=== PATIENT | male | born 1960 | race Caucasian/White ===

== ENCOUNTER 2019-10-11 12:40 | Emergency (ER) | payer OTHER, SELFPAY ==
--- NOTE | ~2019-10-11 | CT_ITS ---
EXAMINATION: CT brain wo con DATE: 10/11/2019 14:02 INDICATION: Status post fall. Neck mass. TECHNIQUE: Computed tomography (CT) of the head was performed without intravenous contrast. The dose- length product was 605.33 mGy-cm. Automated exposure control and iterative reconstruction technique w ere employed. COMPARISON: None FINDINGS: Mild generalized atrophy. There are scattered mild periventricular and subcortical white ma tter changes, most likely related to small vessel ischemic disease (microangiopathy). No acute intrac ranial hemorrhage, infarction, mass or mass effect. Paranasal sinuses and mastoids are pneumatized. N o depressed skull fractures. There is intracranial atherosclerosis. IMPRESSION: 1. No acute intracranial abnormality. 2: Chronic age-related findings. Reviewed, dictated and finalized at location A.
--- NOTE | ~2019-10-11 | XR_ITS ---
XR chest 2V 10/11/2019 14:10 Indication: Weakness Procedure: 2 view chest Comparison: No prior studies for comparison. Findings: Heart size normal. No focal air space disease, pulmonary edema, pleural effusion or suspect ed pneumothorax. The lungs are hyperinflated which is consistent with, but not diagnostic of chronic obstructive pulmonary disease. There is atherosclerosis and ectasia of the aorta. There are prominent bilateral nipple shadows. No acute osseous abnormality. There is a mild mid thoracic wedge compressi on deformity, likely chronic. Impression: 1: No acute cardiopulmonary disease. Reviewed, dictated and finalized at location A. Impression: 1: No acute cardiopulmonary disease.
--- NOTE | ~2019-10-11 | CT_ITS ---
EXAMINATION: CT soft tissue neck w con DATE: 10/11/2019 14:02 INDICATION: Left neck mass. TECHNIQUE: Computed tomography (CT) of the neck was performed with 75 mL Omnipaque-350 intravenous co ntrast. Automated exposure control and iterative reconstruction technique were employed. The dose-waleska gth product was 430.44 mGy-cm. COMPARISON: None FINDINGS: There is mild emphysema. 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 There is involvement of the left sternocleidomastoid muscle. 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 There is asymmetric enlargement of left false vocal cord. T here is plaque in the proximal internal carotid arteries with less than 50% stenosis relative to norm al distal artery lumen diameters. There is mild mucosal thickening in the ethmoid sinuses. The mastoi d air cells are normal. There is severe cervical spondylosis. IMPRESSION: 1. Left internal jugular chain lymphadenopathy, consistent with metastatic disease. Ultrasound-guided core needle biopsy is recommended. 2. Asymmetric enlargement of left false vocal cord suspicious for primary squamous cell carcinoma. Reviewed, dictated and finalized at location A. IMPRESSION: 1. Left internal jugular chain lymphadenopathy, consistent with metastatic dise ase. Ultrasound-guided core needle biopsy is recommended. 2. Asymmetric enlargement of left false vocal cord suspicious for primary squam ous cell carcinoma.
--- NOTE | ~2019-10-11 | CT_ITS ---
EXAMINATION: CT thoracic lumbar wo con DATE: 10/11/2019 14:03 INDICATION: Back pain. Fall. TECHNIQUE: Computed tomography (CT) of the thoracic and lumbar spine was performed without intravenou s contrast. Automated exposure control and iterative reconstruction technique were employed. The dose -length product was 439.02 mGy-cm. COMPARISON: None FINDINGS: THORACIC SPINE CT: There is an 11 mm nodule in right lung lower lobe. Bone alignment is normal. There is chronic anterior wedging of T6, T7, and T9-T12 vertebral bodies. There is a compression fracture of T8 with 2/5 loss of height. Intervertebral disc heights are normal in thoracic spine. There is sev ere cervical spondylosis. There is multilevel facet joint osteoarthritis, severe bilaterally at C7-T1 and T1-T2. There is mild bilateral neural foraminal stenosis at the C7-T1 and T1-T2. There is mild c entral canal stenosis at C6-C7 and T11-T12. There are healing fractures of right 10th and 11th ribs. There is a healed fracture of right 12th rib. LUMBAR SPINE CT: There is 10 degrees levoscoliosis of lumbar spine. Vertebral body heights are normal . There is mildly decreased disc height from L2-L3 through L4-L5 and severely decreased disc height a t L5 5-S1. The following disc levels are specifically discussed: L1-L2: The disc is bulging. There is mild bilateral facet joint osteoarthritis. There is mild bilater al neural foraminal stenosis. There is mild central canal stenosis. L2-L3: The disc is bulging. There is mild bilateral facet joint osteoarthritis. There is mild bilater al neural foraminal stenosis. There is mild central canal stenosis. L3-L4: The disc is bulging. There is mild bilateral facet joint osteoarthritis. There is moderate rig ht and mild left neural foraminal stenosis. There is mild central canal stenosis. L4-L5: The disc is bulging. There is moderate bilateral facet joint osteoarthritis. There is moderate bilateral neural foraminal stenosis. There is mild central canal stenosis. L5-S1: The disc is bulging. There is severe bilateral facet joint osteoarthritis. There is mild right and moderate left neural foraminal stenosis. There is mild central canal stenosis. IMPRESSION: 1. T8 compression fracture, likely acute or subacute. 2. Severe cervical spondylosis, mild thoracic spondylosis, and severe lumbar spondylosis. 3. 11 mm pulmonary nodule suspicious for primary bronchogenic carcinoma or metastatic disease. Chest CT is recommended. Reviewed, dictated and finalized at location A. IMPRESSION: 1. T8 compression fracture, likely acute or subacute. 2. Severe cervical spondylosis, mild thoracic spondylosis, and severe lumbar sp ondylosis. 3. 11 mm pulmonary nodule suspicious for primary bronchogenic carcinoma or meta static disease. Chest CT is recommended.
--- NOTE | 2019-10-11 12:33 | ED.GENADULT ---
HPI - General Adult General Chief complaint: Fall <Allie Lopez MD - Last Filed: 10/11/19 19:09> Stated complaint: FALL <Allie Lopez MD - Last Filed: 10/11/19 19:09> Source: patient and EMS <Allie Lopez MD - Last Filed: 10/11/19 19:09> Mode of arrival: EMS <Allie Lopez MD - Last Filed: 10/11/19 19:09> Limitations: no limitations <Allie Lopez MD - Last Filed: 10/11/19 19:09> History of Present Illness HPI narrative: Patient is a 59-year-old male who presents for evaluation of weakness. Patient reportedly was walking up the stairs in his home, when he misstepped and fell onto the stairs. Patient states that he has had increasing weakness over the past few months, and intermittent bleeding and pain from a wound on his left neck. He states his primary care physician has evaluated this, he has been on numerous doses of antibiotics without any resolution in it. Patient has no known history of cancer. He has never been seen at this hospital before. Patient reports chronic pain all over his body. He denies any acute chest pain, shortness of breath, cough or fever. No acute hip pain. He reports chronic back pain. He denies extremity pain. Patient lives alone, cares for himself, states he does not often visit the hospital. Patient denies any numbness or history of stroke. After speaking with patient's primary care provider, the patient had been seen in the office 1 time, then refused to follow-up or have laboratory work or imaging studies obtained. Her nurse percussion or the sees the patient associated with Dr. Chaney office was concern for cancerous process such as leukoplakia, patient had been referred to ENT. <Allie Lopez MD - Last Filed: 10/11/19 19:09> Related Data Home medications: Home Medications Medication Instructions Recorded Confirmed atenolol 100 mg PO DAILY 10/11/19 <Allie Lopez MD - Last Filed: 10/11/19 19:09> Allergies/adverse reactions: Allergies Allergy/AdvReac Type Severity Reaction Status Date / Time amoxicillin Allergy Other Verified 10/11/19 12:52 <Allie Lopez MD - Last Filed: 10/11/19 19:09> Review of Systems Review of Systems: Narrative: CONSTITUTIONAL: Denies fever, chills, or sweats. EYES: Denies visual changes, redness, or discharge. ENT: Denies rhinorrhea, congestion, sore throat, or otalgia. CARDIOVASCULAR: Denies chest pain, palpitations, or edema. RESPIRATORY: Denies cough or dyspnea. GASTROINTESTINAL: Denies abdominal pain, nausea, vomiting, or diarrhea. GENITOURINARY: Denies dysuria or hematuria. SKIN: Denies rash or itching. Reports wound to left neck. MUSCULOSKELETAL: Reports chronic back pain and muscle aches NEUROLOGIC: Denies headache, numbness, reports weakness <Allie Lopez MD - Last Filed: 10/11/19 19:09> [facility] Past Medical History Medical History: Medical History (Updated 10/12/19 @ 00:00 by [facility]) Hypertension <Allie Lopez MD - Last Filed: 10/11/19 19:09> Surgical History Surgical History: Surgical History (Updated 10/11/19 @ 12:53 by Allie Lopez MD) H/O hand surgery H/O hernia repair <Allie Lopez MD - Last Filed: 10/11/19 19:09> Social History Social History: Social History Smoking status: Light tobacco smoker Alcohol intake: current <Allie Lopez MD - Last Filed: 10/11/19 19:09> Exam Narrative: Exam Narrative: GENERAL: Awake, alert, conversant, cachectic HEAD: Normocephalic, atraumatic. EYES: PERRLA and EOMI. ENT: Nares clear, no rhinorrhea or epistaxis. Mucous membranes dry NECK: Supple. Chronic appearing mass on left anterior neck, no fluctuance, irregular shape, non-mobile, no areas of necrosis, no drainage, mild excoriation CHEST: No respiratory distress, breathing even and non labored HEART: Regular rate, sinus rhythm ABDOMEN: Scaphoi
--- NOTE | 2019-10-11 12:45 | ECG_ITS ---
Measurements Intervals [place] Rate: 78 P: 84 OR: 148 QRS: 67 QRSD: 94 T: 72 QT: 408 QTc: 465 Interpretive Statements SINUS RHYTHM CONSIDER INFERIOR INFARCT, AGE INDETERMINATE ST-T WAVE ABNORMALITY IN ANTERIOR LEADS- CONSIDER ISCHEMIA BASELINE ARTIFACT- V4-V5 ABNORMAL ECG Electronically Signed On 10-11-2019 13:29:50 CDT by Cosme Mcqueen D.O.
[2019-10-11 12:46] VITALS: BP 130/93; PULSE 80; RESP 16; TEMP 36.3; O2SAT 100
[2019-10-11] MEDS: SODIUM CHLORIDE 0.9% IV 1,000 ML 999 ML IV CONT (12:59)
[2019-10-11 13:06] LABS: Glucose Point of Care 61 (65-105)
[2019-10-11 13:21] LABS: Basophils Percent Auto 0.4 % (0.2-1.2); Hematocrit 23.1 % (42.0-52.0); Hemoglobin 8.1 g/dL (14.0-18.0); Immature Granulocyte Absolute 0.04 K/mm3 (0.00-0.031); Immature Granulocyte Percent A 0.8 % (0-0.5); Lymphocytes Absolute Auto 0.67 K/mm3 (0.9-3.2); Lymphocytes Percent Auto 13.3 % (18.3-44.2); Mean Corpuscular HGB Conc 35.1 g/dl (32-36); Mean Corpuscular Hemoglobin 34.2 pg (26-34); Mean Corpuscular Volume 97.5 fl (80-100); Mean Platelet Volume 11.1 fl (7.4-10.4); Monocytes Absolute Auto 0.3 K/mm3 (0.1-0.6); Monocytes Percent Auto 5.1 % (2.6-8.5); Neutrophils Absolute Auto 4.1 K/mm3 (1.3-6.7); Neutrophils Percent Auto 80.4 % (45.5-73.1); Nucleated Red Blood Cells Perc 0.6 % (0.0-0.2); Platelet Count Result 172 k/mm3 (150-375); Red Blood Count 2.37 M/mm3 (4.6-6.20); Red Cell Distribution Width 13.4 % (11.5-14.5); White Blood Count 5.1 K/mm3 (4.5-10.0)
[2019-10-11 13:28] LABS: Prothrombin Time 12.4 Seconds (11.1-14.7)
[2019-10-11 13:29] LABS: Partial Thromboplastin Time 24.3 SECONDS (22.3-36.8)
[2019-10-11 13:37] LABS: Estimated CRCL calculation 54 ml/min; Estimated Glomerular Filt Rate > 60
[2019-10-11 13:37] LABS: Alanine Aminotransferase 56 U/L (4-50); Albumin Level 3.5 g/dL (3.5-5.1); Alkaline Phosphatase 113 U/L (38-126); Aspartate Amino Transferase 174 U/L (17-59); Bilirubin,Total 1.4 mg/dL (0.2-1.3); Blood Urea Nitrogen 12 mg/dL (9-20); Calcium 8.8 mg/dL (8.4-10.2); Carbon Dioxide 19 mmol/L (22-30); Chloride 83 mmol/L (98-107); Estimated CRCL calculation 54 ml/min; Estimated Glomerular Filt Rate > 60; Glucose 64 mg/dL (75-110); Potassium 2.7 mmol/L (3.4-5.0); Sodium 129 mmol/L (137-145)
[2019-10-11 13:52] LABS: Creatine Kinase MB 0.9 ng/mL (0.0-2.37); Troponin I 0.013 ng/mL (0.000-0.034)
[2019-10-11 14:08] VITALS: BP 135/100; PULSE 88; RESP 15
[2019-10-11] MEDS: POTASSIUM CHLORIDE 20 MEQ PACKET (FOR LIQUID) 40 MEQ PO (14:12)
[2019-10-11 15:33] VITALS: BP 152/117; PULSE 87; RESP 13
[2019-10-11 16:31] VITALS: BP 135/95; PULSE 86; RESP 14
[2019-10-11] MEDS: ONDANSETRON INJ 4 MG/2 ML VIAL IV PUSH (17:06)
[2019-10-11] MEDS: PANTOPRAZOLE SODIUM IV 40 MG VIAL 80 MG IV PUSH (17:06)
[2019-10-11 17:17] LABS: Basophils Percent Auto 0.3 % (0.2-1.2); Hematocrit 22.3 % (42.0-52.0); Hemoglobin 7.7 g/dL (14.0-18.0); Immature Granulocyte Absolute 0.06 K/mm3 (0.00-0.031); Immature Granulocyte Percent A 0.9 % (0-0.5); Lymphocytes Percent Auto 14.1 % (18.3-44.2); Mean Corpuscular HGB Conc 34.5 g/dl (32-36); Mean Corpuscular Hemoglobin 33.8 pg (26-34); Mean Corpuscular Volume 97.8 fl (80-100); Monocytes Absolute Auto 0.5 K/mm3 (0.1-0.6); Monocytes Percent Auto 7.2 % (2.6-8.5); Neutrophils Absolute Auto 4.9 K/mm3 (1.3-6.7); Neutrophils Percent Auto 77.5 % (45.5-73.1); Nucleated Red Blood Cells Perc 0.3 % (0.0-0.2); Platelet Count Result 153 k/mm3 (150-375); Red Blood Count 2.28 M/mm3 (4.6-6.20); Red Cell Distribution Width 13.5 % (11.5-14.5); White Blood Count 6.4 K/mm3 (4.5-10.0)
[2019-10-11 18:01] VITALS: BP 137/91; PULSE 90; RESP 18; O2SAT 100
[2019-10-11 18:39] LABS: Blood Urea Nitrogen 11 mg/dL (9-20); Calcium 8.2 mg/dL (8.4-10.2); Carbon Dioxide 16 mmol/L (22-30); Chloride 87 mmol/L (98-107); Estimated CRCL calculation 54 ml/min; Estimated Glomerular Filt Rate > 60; Glucose 118 mg/dL (75-110); Potassium 4.2 mmol/L (3.4-5.0); Sodium 129 mmol/L (137-145)
--- NOTE | 2019-10-11 19:19 | PC.NURSE ---
per Jessy at [facility], she will call back with a bed.
[2019-10-11 20:01] LABS: Add Urine Microscopic? YES; Appearance Urine Clear (Clear); Bacteria Urine Trace /hpf; Bilirubin Urine Negative (Negative); Blood Urine 2+ (Negative); Color Urine Yellow (Yellow); Glucose Urine UA Negative (Negative); Ketones Urine 2+ mg/dL (Negative); Leukocyte Esterase Ur Negative LEU/UL (Negative); Mucus Urine Rare /lpf; Nitrate Urine Negative (Negative); Protein Urine Negative (Negative); RBC Urine 0-2 /hpf (0-2); WBC Urine 0-3 /hpf
[2019-10-11 20:03] LABS: Specific Grav Ur 1.044 (1.001-1.035)
== END 2019-10-11 20:35 | disposition short-term general hospital (02) ==
PROVIDERS: Emergency Provider Emergency Medicine; PCP Family Medicine
DX: C76.0 Malignant neoplasm of head, face and neck (principal); D64.9 Anemia, unspecified; R53.1 Weakness; E87.6 Hypokalemia; E86.0 Dehydration; I10 Essential (primary) hypertension; F17.200 Nicotine dependence, unspecified, uncomplicated; M47.812 Spondylosis without myelopathy or radiculopathy, cervical region; M47.814 Spondylosis without myelopathy or radiculopathy, thoracic region; M47.816 Spondylosis without myelopathy or radiculopathy, lumbar region; R91.1 Solitary pulmonary nodule
CPT/HCPCS: 36415; 70450; 70491; 71046; 72128; 72131; 80048; 80053; 81001; 82553; 82948; 84484; 85025; 85610; 85730; 86850; 86900; 86901; 93005; 96365; 96366; 96367; 96375; 99285; A9270; C9113; J2405; J3480; J7030; J7060; Q9967